=== PATIENT | male | born 1995 | race Caucasian/White ===

== ENCOUNTER 2021-03-05 16:44 | Emergency (ER) | payer OTHER ==
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
== END 2021-03-05 21:22 | disposition home or self-care (01) ==
LOC: MW.ED 16:44
DX: S06.0X0A Concussion without loss of consciousness, initial encounter (principal); S80.02XA Contusion of left knee, initial encounter; V40.5XXA Car driver injured in collision with pedestrian or animal in traffic accident, initial encounter
CPT/HCPCS: 70450; 70450-26; 73562-26-LT; 73562-LT; 99284-25